=== PATIENT | female | born 1965 | race Caucasian/White ===

== ENCOUNTER 2019-08-28 22:49 | Emergency (ER) | payer MEDICAID ==
[~2019-08-28] VITALS: Ht 160 cm; Wt 86.4 kg
[2019-08-28] MEDS ORDERED: ibuprofen tablet 400 MG TABLET PO ONE (23:15)
[2019-08-28 23:22] LABS: CLARITY,URINE CLOUDY (Clear); COLOR,URINE YELLOW (Yellow); GLUCOSE, URINE NEGATIVE (Neg); KETONES,URINE NEGATIVE (Neg); LEUKOCYTE ESTERASE ,URINE SMALL (Neg); NITRITES, URINE POSITIVE (Neg); OCCULT BLOOD,URINE MODERATE (Neg); PROTEIN,URINE >=300 mg/dl (Neg); UROBILINOGEN,URINE 0.2 E.U/dL (0.2-1.0)
[2019-08-28 23:34] LABS: UA COLLECTION TYPE CLN CATCH MIDSTREAM
[2019-08-28 23:35] LABS: BACTERIA,URINE 1+ /HPF (Neg); SQUAMOUS EPITHELIAL CELL,UR FEW /LPF (FEW); WBC,URINE 20-30 /HPF (0-4)
[2019-08-28] MEDS ORDERED: CEPH500C5 PO (23:39)
[2019-08-28] MEDS ORDERED: ONDA4TAB12 PO (23:39)
[2019-08-28] MEDS ORDERED: cephalexin 250mg capsule PO ONE (23:40)
[2019-08-28 23:50] VITALS: BP 171/98
== END 2019-08-28 23:52 | disposition home or self-care (01) ==
LOC: ER 22:50
DX: N39.0 Urinary tract infection, site not specified (principal); Z85.3 Personal history of malignant neoplasm of breast
CPT/HCPCS: 81001; 87077; 87088; 87186; 99283

== ENCOUNTER 2020-01-26 02:27 | Emergency (ER) | payer MEDICAID ==
[~2020-01-26] VITALS: Ht 157.5 cm; Wt 87.7 kg
[~2020-01-26 02:27] MED LIST: CEPH500C5 PO; ONDA4TAB12 PO
[2020-01-26] MEDS ORDERED: morphine 2 MG/ML inj. syringe IV PRN (03:05)
[2020-01-26] MEDS ORDERED: normal saline 1000ML IV soln IVB ONE (03:05)
[2020-01-26] MEDS ORDERED: ondansetron/PF 4mg/2ml inj IV ONE (03:05)
[2020-01-26] MEDS ORDERED: pantoprazole 40 MG vial IV ONE (03:05)
[2020-01-26 03:22] LABS: BASOPHILS % (AUTO) 0.4 % (0-1); EOSINOPHILS % (AUTO) 0 % (0-6); HEMATOCRIT 45.2 % (35.0-45.0); HEMOGLOBIN 15.4 g/dl (12.0-16.0); LYMPHOCYTES # (AUTO) 0.4 X10'3 (1.1-4.8); MEAN CORPUSCULAR HEMOGLOBIN 30.4 PG (27.0-31.0); MEAN CORPUSCULAR VOLUME 89.4 FL (78-98); MONOCYTES # (AUTO) 0.5 X10'3 (0-0.9); MONOCYTES % (AUTO) 7.6 % (2-12); PLATELET COUNT 247 X10'3 (140-440); RED BLOOD COUNT 5.06 X10'6 (4.20-5.60); RED CELL DISTRIBUTION WIDTH 13.4 % (11.5-14.5)
--- NOTE | 2020-01-26 03:30 | NUR ---
pt started to drift off to sleep o2 sats dropped to 88-89 % . awoke pt and had her deep breath and sit up right o2 sats increase to 90 % . pt hr increased to 106 o2 appliedat 2 l with an increase to o2 sats to 95 % . dr nettles aware
[2020-01-26 03:35] LABS: ALANINE AMINOTRANSFERASE 23 U/L (12-78); ALBUMIN 3.4 G/DL (3.4-5.0); ALBUMIN/GLOBULIN RATIO 0.9 (1.1-1.5); ALKALINE PHOSPHATASE 98 IU/L (46-116); ANION GAP 12 (8-16); ASPARTATE AMINO TRANSFERASE 25 U/L (10-37); BILIRUBIN,TOTAL 0.5 MG/DL (0.1-1.0); BLOOD UREA NITROGEN 11 MG/DL (7-18); BUN/CREATININE RATIO 15.3 (6.6-38.0); CALCIUM 8.7 MG/DL (8.5-10.1); CHLORIDE 100 MMOL/L (99-107); CREATININE 0.72 MG/DL (0.40-0.90); GLUCOSE 127 MG/DL (70-104); POTASSIUM 3.5 MMOL/L (3.5-5.1); SODIUM 135 MMOL/L (135-145); TOTAL CARBON DIOXIDE 23.3 MMOL/L (24-32); TOTAL PROTEIN 7.4 G/DL (6.4-8.2); eGFR 84 ML/MIN
--- NOTE | 2020-01-26 04:25 | NUR ---
PO CHALLENGE BEGUN WITH 360 ML [id number]
[2020-01-26 04:35] LABS: CLARITY,URINE CLEAR (Clear); COLOR,URINE YELLOW (Yellow); GLUCOSE, URINE NEGATIVE (Neg); KETONES,URINE NEGATIVE (Neg); LEUKOCYTE ESTERASE ,URINE NEGATIVE (Neg); NITRITES, URINE NEGATIVE (Neg); OCCULT BLOOD,URINE NEGATIVE (Neg); PROTEIN,URINE NEGATIVE (Neg)
[2020-01-26 04:36] LABS: UA COLLECTION TYPE CLN CATCH MIDSTREAM
[2020-01-26 05:10] VITALS: BP 161/98
--- NOTE | 2020-01-26 05:17 | NUR ---
X RAY AT BEDSIDE
[2020-01-26] MEDS ORDERED: acetaminophen 325mg tablet PO ONE (05:20)
--- NOTE | 2020-01-29 08:49 | NUR ---
ATTEMPTED TO CALL PT REGARDING XRAY FINDINGS. VOICEMAIL BOX FULL, UNABLE TO LEAVE MSG.
== END 2020-01-26 06:29 | disposition home or self-care (01) ==
LOC: ER 02:28
DX: R53.81 Other malaise (principal); R51 Headache; M79.18 Myalgia, other site; R11.0 Nausea; I10 Essential (primary) hypertension; Z85.3 Personal history of malignant neoplasm of breast; Z79.899 Other long term (current) drug therapy
CPT/HCPCS: 36415; 71045; 80053; 81003; 85025; 96361; 96374; 96375; 99284; C9113; J2405; J7030

== ENCOUNTER 2020-04-23 17:04 | Emergency (ER) | payer MEDICAID ==
[2020-04-23 17:10] VITALS: BP 182/113
[2020-04-23] MEDS ORDERED: ondansetron 4mg rapidly disintigrating tab PO ONE (17:50)
== END 2020-04-23 17:20 | disposition left against medical advice (07) ==
LOC: ER 17:05
DX: R11.2 Nausea with vomiting, unspecified (principal); I10 Essential (primary) hypertension; Z85.3 Personal history of malignant neoplasm of breast; Z79.2 Long term (current) use of antibiotics
CPT/HCPCS: 99281